=== PATIENT | female | born 1985 | race Two or more races ===

== ENCOUNTER 2017-09-20 07:46 | Emergency (ER) | payer SELFPAY ==
[~2017-09-20] VITALS: Ht 154.9 cm; Wt 83.9 kg
[2017-09-20] MEDS ORDERED: LIDO:MAALOX:DONNATAL 1:1:1 15 ML SINGLE DOSE SWSW ONE (08:15)
[2017-09-20] MEDS ORDERED: FAMOTIDINE 20 MG/2 ML VIAL IVP ONE (08:15)
[2017-09-20 08:16] LABS: BILIRUBIN,URINE SMALL (NEG); GLUCOSE,URINE NEGATIVE (NEG); NITRITE,URINE NEGATIVE (NEG); PROTEIN,URINE NEGATIVE (NEG-TRACE); UROBILINOGEN,URINE 0.2 mg/dL (0.2 mg/dL)
[2017-09-20 08:29] LABS: SQUAMOUS EPITHELIAL CELL,UR MANY /LPF
[2017-09-20 08:30] LABS: BACTERIA,URINE MOD /HPF (0-FEW); RBC,URINE OCC /HPF (0-2)
[2017-09-20 08:34] LABS: BASO % 1 % (0-3); EOS % 3 % (0-3); HEMATOCRIT 41.9 % (36.0-47.0); HEMOGLOBIN 13.8 g/dL (12.0-15.5); LYMPH # 2.5 x10^3/uL (1.0-4.8); LYMPH % 35 % (24-48); MEAN CORPUSCULAR HEMOGLOBIN 30 pg (25-35); MEAN CORPUSCULAR HGB CONC 33 g/dL (31-37); MEAN CORPUSCULAR VOLUME 91 fL (79-100); MONO % 8 % (0-9); NEUT % 54 % (31-73); PLATELET COUNT 193 x10^3/uL (140-400); RED BLOOD COUNT 4.61 x10^6/uL (3.50-5.40); RED CELL DISTRIBUTION WIDTH 13.5 % (11.5-14.5); WHITE BLOOD COUNT 7.2 x10^3/uL (4.0-11.0)
--- NOTE | 2017-09-20 08:47 | PHYS DOC ---
Past Medical History Past Medical History: No Pertinent History Past Surgical History: No Surgical History Alcohol Use: None Drug Use: None Adult General Chief Complaint Chief Complaint: ABDOMINAL PAIN HPI HPI Patient is a 32 year old female who presents with a sharp 6 out of 10 chronic mid epigastric abdominal pain that has been going on for years but got worse on Monday. Patient denies any nausea vomiting. She states she uses some powered medicine from [place] that is not helping this time. She states she has seen her PCP multiple times who has requested her to see a boat rental clerk. She states she has not made an appointment with her boat rental clerk because she lost the referral paperwork. Zantac and Prilosec with no relief and does not take them anymore. Patient denies she is constipated. She states she had her last bowel movement yesterday was normal. Review of Systems Review of Systems Constitutional: Denies fever or chills [] Eyes: Denies change in visual acuity, redness, or eye pain [] HENT: Denies nasal congestion or sore throat [] Respiratory: Denies cough or shortness of breath [] Cardiovascular: No additional information not addressed in HPI [] GI: Reports epigastric abdominal pain, denies nausea, vomiting, bloody stools or diarrhea [] : Denies dysuria or hematuria [] Musculoskeletal: Denies back pain or joint pain [] Integument: Denies rash or skin lesions [] Neurologic: Denies headache, focal weakness or sensory changes [] All other systems were reviewed and found to be within normal limits, except as documented in this note. Current Medications Current Medications Current Medications Medications (Trade) Dose Ordered Sig/[facility] Start Time Stop Time Status Last Admin Dose Admin Famotidine (Pepcid Vial) 20 mg 1X ONCE 09/20/17 08:15 09/20/17 08:31 DC 09/20/17 08:49 20 MG Magnesium Citrate (Citroma) 296 ml 1X ONCE 09/20/17 09:15 09/20/17 09:16 Multi-Ingredient Mouthwash/Gargle (Gi Cocktail Single Dose) 15 ml 1X ONCE 09/20/17 08:15 09/20/17 08:31 DC 09/20/17 08:49 15 ML Allergies Allergies Allergies Coded Allergies Type Severity Reaction Last Updated Verified No Known Drug Allergies 09/20/17 No Physical Exam Physical Exam Constitutional: Well developed, well nourished, no acute distress, non-toxic appearance. [] HENT: Normocephalic, atraumatic, bilateral external ears normal, oropharynx moist, no oral exudates, nose normal. [] Eyes: PERRLA, EOMI, conjunctiva normal, no discharge. [] Neck: Normal range of motion, no tenderness, supple, no stridor. [] Cardiovascular:Heart rate regular rhythm, no murmur [] Lungs & Thorax: Bilateral breath sounds clear to auscultation [] Abdomen: Bowel sounds normal, soft, mild tenderness midepigastric area, no right upper quadrant or right lower quadrant tenderness, no masses, no pulsatile masses. [] Skin: Warm, dry, no erythema, no rash. [] Back: No tenderness, no CVA tenderness. [] Extremities: No tenderness, no cyanosis, no clubbing, ROM intact, no edema. [] Neurologic: Alert and oriented X 3, normal motor function, normal sensory function, no focal deficits noted. [] Psychologic: Affect normal, judgement normal, mood normal. [] Current Patient Data Vital Signs Vital Signs Date Time Temp Pulse Resp B/P (MAP) Pulse Ox O2 Delivery O2 Flow Rate FiO2 09/20/17 07:50 98.0 89 14 116/64 (81) 97 Room Air 98.0 Lab Values Laboratory Tests Test 09/20/17 07:50 09/20/17 08:08 09/20/17 08:25 Urine Collection Type Unknown Urine Color Yellow Urine Clarity Clear Urine pH 6.0 Urine Specific [place] >=1.030 Urine Protein Negative mg/dL (NEG-TRACE) Urine Glucose (UA) Negative mg/dL (NEG) Urine Ketones (Stick) Trace mg/dL (NEG) Urine Blood Negative (NEG) Urine Nitrite Negative (NEG) Urine Bilirubin Small (NEG) Urine Urobilinogen Dipstick 0.2 mg/dL (0.2 mg/dL) Urine Leukocyte Esterase Trace (NEG) Urine RBC Occ /HPF (0-2) Urine WBC 5-10 /HPF (0-4) Urine Squamous Epithelial Cells Many /LPF Urine Bacteria Mod /HPF (0-FEW) Urine Mucus Mod /LPF POC Urine HCG, Qualitative Hcg negative (Negative) White Blood Count 7.2 x10^3/uL (4.0-11.0) Red Blood Count 4.61 x10^6/uL (3.50-5.40) Hemoglobin 13.8 g/dL (12.0-15.5) Hematocrit 41.9 % (36.0-47.0) Mean Corpuscular Volume 91 fL (79-100) Mean Corpuscular Hemoglobin 30 pg (25-35) Mean Corpuscular Hemoglobin Concent 33 g/dL (31-37) Red Cell Distribution Width 13.5 % (11.5-14.5) Platelet Count 193 x10^3/uL (140-400) Neutrophils (%) (Auto) 54 % (31-73) Lymphocytes (%) (Auto) 35 % (24-48) Monocytes (%) (Auto) 8 % (0-9) Eosinophils (%) (Auto) 3 % (0-3) Basophils (%) (Auto) 1 % (0-3) Neutrophils # (Auto) 3.9 x10^3uL (1.8-7.7) Lymphocytes # (Auto) 2.5 x10^3/uL (1.0-4.8) Monocytes # (Auto) 0.6 x10^3/uL (0.0-1.1) Eosinophils # (Auto) 0.2 x10^3/uL (0.0-0.7) Basophils # (Auto) 0.0 x10^3/uL (0.0-0.2) Sodium Level 141 mmol/L (136-145) Potassium Level 3.8 mmol/L (3.5-5.1) Chloride Level 106 mmol/L (98-107) Carbon Dioxide Level 28 mmol/L (21-32) Anion Gap 7 (6-14) Blood Urea Nitrogen 11 mg/dL (7-20) Creatinine 0.7 mg/dL (0.6-1.0) Estimated GFR (Cockcroft-Gault) 98.3 BUN/Creatinine Ratio 16 (6-20) Glucose Level 97 mg/dL (70-99) Calcium Level 9.0 mg/dL (8.5-10.1) Total Bilirubin 0.8 mg/dL (0.2-1.0) Aspartate Amino Transferase (AST) 24 U/L (15-37) Alanine Aminotransferase (ALT) 41 U/L (14-59) Alkaline Phosphatase 72 U/L (46-116) Total Protein 8.1 g/dL (6.4-8.2) Albumin 4.0 g/dL (3.4-5.0) Albumin/Globulin Ratio 1.0 (1.0-1.7) Lipase 118 U/L (73-393) Laboratory Tests 09/20/17 08:25 Laboratory Tests 09/20/17 08:25 EKG EKG [] Radiology/Procedures Radiology/Procedures []PROCEDURE: ABDOMEN COMPLETE Abdominal ultrasound, 09/20/2017: History: Chronic abdominal pain The gallbladder is within normal limits in size. There is no sonographic evidence of cholelithiasis. The gallbladder cobos are not thickened. No bile duct dilatation is seen. The hepatic echogenicity is increased, most commonly due to fatty change. No hepatic mass is identified. The pancreas and central retroperitoneum including much of the abdominal aorta and inferior vena cava were obscured by overlying bowel. The spleen is of normal size. No renal abnormality is detected. No free fluid is evident in the abdomen. IMPRESSION: 1. Increased hepatic echogenicity suggesting hepatic steatosis. 2. Obscuration of the pancreas and central retroperitoneum by overlying bowel. DICTATED and SIGNED BY: CATHIE LEA MD DATE: 09/20/17 0852 CC: CHRISTAL CASTANON LANGUAGE PATH; NO PCP ~ Course & Med Decision Making Course & Med Decision Making Pertinent Labs and Imaging studies reviewed. (See chart for details) Patient is in the ED with epigastric abdominal pain that has been going on for years. Negative urine hCG, urine analysis is negative for infection. CBC CMP lipase with no acute findings, abdominal ultrasound was negative for any acute findings but noted for constipation. Patient was given mag citrate in the ED and educated on constipation. She was discharged with MiraLAX. Encouraged to take MiraLAX every day, encouraged to take omeprazole Prilosec A day. Encouraged to diet and exercise. Follow-up with GI specialist which we provided as well as PCP. Margaret Disclaimer Dragon Disclaimer This electronic medical record was generated, in whole or in part, using a voice recognition dictation system. Departure Departure Impression: Primary Impression: Constipation Additional Impression: Epigastric pain Disposition: HOME, SELF-CARE Condition: STABLE Referrals: NO PCP (PCP) DEEP KENNEDY MD follow up with your doctor in one week as well as the provided stomach doctor. Patient Instructions: Abdominal Pain, Constipation, Adult, [id number], Diet for Gastroesophageal Reflux Disease, Adult Additional Instructions: You were seen for epigastric abdominal pain. We highly recommend you follow-up with the boat rental clerk which was provided. You were noted for constipation. Consider using MiraLAX every day. Consider using Prilosec for acid reflex every day. Push fluids, increase your dietary fiber intake. Come back to the ED at any point symptoms worsen. Scripts Polyethylene Glycol 3350 (MIRALAX) 17 Gm Powd.pack 1 PACKET PO DAILY, #30 PACKET 3 Refills Prov: CHRISTAL CASTANON APRN 09/20/17 Omeprazole Magnesium (PRILOSEC OTC) 20 Mg Tablet.dr 1 TAB PO DAILY, #30 TAB 3 Refills Prov: CHRISTAL CASTANON APRN 09/20/17 Problem Qualifiers Primary Impression: Constipation Constipation type: unspecified constipation type Qualified Codes: K59.00 - Constipation, unspecified CHRISTAL CASTANON APRN Sep 20, 2017 08:47
[2017-09-20 08:49] LABS: CREATININE 0.7 mg/dL (0.6-1.0); GFR 98.3; POTASSIUM 3.8 mmol/L (3.5-5.1)
[2017-09-20 08:55] LABS: TOTAL BILIRUBIN 0.8 mg/dL (0.2-1.0); TOTAL PROTEIN 8.1 g/dL (6.4-8.2)
--- NOTE | 2017-09-20 08:59 | RAD ---
Abdominal ultrasound, 09/20/2017: History: Chronic abdominal pain The gallbladder is within normal limits in size. There is no sonographic evidence of cholelithiasis. The gallbladder cobos are not thickened. No bile duct dilatation is seen. The hepatic echogenicity is increased, most commonly due to fatty change. No hepatic mass is identified. The pancreas and central retroperitoneum including much of the abdominal aorta and inferior vena cava were obscured by overlying bowel. The spleen is of normal size. No renal abnormality is detected. No free fluid is evident in the abdomen. IMPRESSION: 1. Increased hepatic echogenicity suggesting hepatic steatosis. 2. Obscuration of the pancreas and central retroperitoneum by overlying bowel.
[2017-09-20 09:00] VITALS: BP 121/77
[2017-09-20] MEDS ORDERED: MAGNESIUM CITRATE 296 ML SOLUTION. PO ONE (09:15)
[2017-09-20] MEDS ORDERED: POLY17PO29 PO (09:19)
[2017-09-20] MEDS ORDERED: OMEP20TA63 PO (09:19)
== END 2017-09-20 09:30 | disposition home or self-care (01) ==
LOC: ER 07:46
DX: K59.00 Constipation, unspecified (principal); G89.29 Other chronic pain; R10.13 Epigastric pain
CPT/HCPCS: 36415; 76700; 80053; 81001; 81025; 83690; 85025; 96374; 99285; S0028